=== PATIENT | male | born 1965 | race Caucasian/White ===

== ENCOUNTER 2017-10-27 16:57 | Emergency (ER) | payer OTHER ==
[2017-10-27] MEDS ORDERED: TORAdol 30 mg Injection IM ONE (17:53)
--- NOTE | 2017-10-27 17:57 | ERPHSYRPT ---
- History of Present Illness Time Seen by Provider: 10/27/17 17:50 Source: patient Exam Limitations: no limitations Patient Subjective Stated Complaint: pt reports pain to right [place] beginning last night-states that he has not injuryed it-denies swelling or warmth Triage Nursing Assessment: pt ambulatory to ed room-no obvious injury-no bruising or abrasions noted-no swelling noted Physician History: 52 y/o male comes to the ER with right leg pain that started yesterday. Pt localizes the pain on the front of the leg. Pt describes the pain as sharp, constant, 8/10, worse with movement and not relieved by oxycodone. Pt denies any injury to the leg and no swelling or warmth. Method of Injury: unknown Occurred: yesterday Quality: constant Severity of Pain-Max: severe Severity of Pain-Current: severe Modifying Factors: Improves With: nothing Associated Symptoms: none Allergies/Adverse Reactions: No Known Drug Allergies Allergy (Unverified 10/27/17 17:36) Home Medications: Benazepril HCl 10 mg [Lotensin 10 MG] 10 mg PO DAILY 10/27/17 [History] Hydrocodone Bit/Acetaminophen [[place] 7.5-325 Tablet] 1 each PO UD 10/27/17 [ History] Hx Tetanus, Diphtheria Vaccination/Date Given: Yes (2016) Hx Influenza Vaccination/Date Given: Yes (2016) Hx Pneumococcal Vaccination/Date Given: No Immunizations Up to Date: Yes - Review of Systems Constitutional: No Fever, No Chills Eyes: No Symptoms Ears, Nose, & Throat: No Symptoms Respiratory: No Cough, No Dyspnea Cardiac: No Chest Pain, No Edema, No Syncope Abdominal/Gastrointestinal: No Abdominal Pain, No Nausea, No Vomiting, No Diarrhea Genitourinary Symptoms: No Dysuria Musculoskeletal: Myalgias, No Back Pain, No Neck Pain Skin: No Rash Neurological: No Dizziness, No Focal Weakness, No Sensory Changes Psychological: No Symptoms Endocrine: No Symptoms All Other Systems: Reviewed and Negative - Past Medical History Pertinent Past Medical History: Yes Cardiac History: Hypertension - Past Surgical History Past Surgical History: Yes Musculoskeletal: Orthopedic Surgery - Social History Smoking Status: Never smoker Exposure to second hand smoke: No Drug Use: none Patient Lives Alone: No - Nursing Vital Signs Nursing Vital Signs: Initial Vital Signs Temperature 97.3 F 10/27/17 17:32 Pulse Rate 100 H 10/27/17 17:32 Respiratory Rate 20 10/27/17 17:32 Blood Pressure 144/82 10/27/17 17:32 O2 Sat by Pulse Oximetry 97 10/27/17 17:32 Pain Scale Pain Intensity 6 - Physical Exam General Appearance: alert Eyes, Ears, Nose, Throat Exam: moist mucous membranes Neck Exam: non-tender, supple Cardiovascular/Respiratory Exam: chest non-tender, normal breath sounds, regular rate/rhythm, no respiratory distress Gastrointestinal/Abdominal Exam: non-tender, guarding Back Exam: normal inspection, No vertebral tenderness Legs Exam: right leg: pain Knees Exam: bilateral knee: non-tender, normal inspection, normal range of motion Ankle Exam: bilateral ankle: non-tender, normal inspection Neuro/Tendon Exam: normal sensation, normal motor functions Mental Status Exam: alert, oriented x 3, cooperative Skin Exam: normal color, warm, dry SpO2: 97 Oxygen Delivery: Room Air - Course Nursing assessment & vital signs reviewed: Yes Ordered Tests: Active Orders 24 hr Category Date Time Status LOWER LEG Stat Exams 10/27/17 18:45 Taken Medication Summary Discontinued Medications Generic Name Dose Route Start Last Admin Trade Name Freq PRN Reason Stop Dose Admin Ketorolac Tromethamine 60 mg 10/27/17 17:53 10/27/17 18:03 Toradol 30 Mg Injection IM 10/27/17 17:54 60 mg STAT ONE Administration Ketorolac Tromethamine Confirm 10/27/17 18:00 Toradol 30 Mg Injection Administered 10/27/17 18:01 Dose 60 mg .ROUTE .STK-MED ONE - Progress Progress: improved Progress Note: 10/27/17 18:54 The patient feels better after receiving toradol. The x ray of tibia and fibula are within normal limits. The patient will be d/c home on toradol for musculoskeletal pain. - Departure Time of Disposition: 18:55 Departure Disposition: Home Clinical Impression: Leg pain Qualifiers: Laterality: right Qualified Code(s): M79.604 - Pain in right leg Condition: Stable Critical Care Time: No Instructions: Muscle and Bone Pain (DC) Additional Instructions: Follow up with your primary care doctor if yous should continue to have pain. Prescriptions: Ketorolac Tromethamine [Toradol] 10 mg PO QID PRN #12 tablet PRN Reason: Pain
[2017-10-27] MEDS ORDERED: TORAdol 30 mg Injection ONE (18:00)
[2017-10-27 19:20] VITALS: BP 137/87; PULSE 75; O2SAT 98
--- NOTE | 2017-10-28 08:39 | XRAY ---
Indication: Pain. No known injury. Comparison: None 2 views of the right lower leg obtained. No bony, articular, or soft tissue abnormalities.
== END 2017-10-27 19:21 | disposition home or self-care (01) ==
LOC: ED 16:57
DX: M79.661 Pain in right lower leg (principal)
CPT/HCPCS: 73590; 96372; 99284; J1885

== ENCOUNTER 2019-04-26 22:40 | Emergency (ER) | payer OTHER | END 2019-04-27 01:57 | disposition home or self-care (01) | LOC: ED 22:40 ==

== ENCOUNTER 2021-05-12 11:10 | Emergency (ER) | payer OTHER ==
[2021-05-12] MEDS ORDERED: TORAdol 30 mg Injection IV ONE (12:03)
[2021-05-12] MEDS ORDERED: Reglan 10 MG/2 ML IV ONE (12:03)
[2021-05-12] MEDS ORDERED: BENADRYL 50 MG/ML IV ONE (12:03)
[2021-05-12] MEDS ORDERED: TYLENOL 325 MG PO ONE (12:03)
[2021-05-12] MEDS ORDERED: Sodium Chloride 0.9% 1000 ML 1,000 ML IV STA (12:03)
--- NOTE | 2021-05-12 12:29 | ERPHSYRPT ---
- History of Present Illness Time Seen by Provider: 05/12/21 11:36 Source: patient Exam Limitations: no limitations Patient Subjective Stated Complaint: KAUFFMAN, back pain, fever and cough x 2 days Triage Nursing Assessment: pt to ED c/o KAUFFMAN 5/10, back pain, fever and cough x 2 days. pt has been taking OTC meds which have helped relieve KAUFFMAN. pt denies COVID exposure. reports fever at home however was not checked, "I can just tell by the way I feel." afebrile on arrival. no CP or SOB reported. Physician History: 56 years old male with history of hypertension, unvaccinated against COVID-19 presented in the ER with 2 days history of flulike symptoms with nasal congestion, cough, chest soreness, body aches and headache. Using [id number] medication with no significant relief. Has nausea but no vomiting. Patient feels weak fatigued and tired with no energy. Subjective feeling of fever and chills. Denies any known sick contact. Timing/Duration: day(s) (2), constant, gradual onset, worse Cough Quality/Degree: mild, dry cough Possible Cause: no prior episodes Modifying Factors: Improves With: nothing Associated Symptoms: fever, chills, chest pain/soreness, cough, dizziness, headache, muscle aches, nasal congestion, nasal drainage, sinus infection, sore throat, No shortness of breath Allergies/Adverse Reactions: No Known Drug Allergies Allergy (Verified 04/26/19 23:33) Home Medications: Benazepril HCl 10 mg [Lotensin 10 MG] 10 mg PO DAILY 10/27/17 [History] Hx Tetanus, Diphtheria Vaccination/Date Given: Yes (2016) Hx Influenza Vaccination/Date Given: Yes (2016) Hx Pneumococcal Vaccination/Date Given: No Immunizations Up to Date: Yes Travel Risk - International Travel Have you traveled outside of the country in past 3 weeks: No - Coronavirus Screening Are you exhibiting any of the following symptoms?: Yes Symptoms: Cough: New Onset, Headaches/Body Aches/Fatigue Close contact with a COVID-19 positive Pt in past 14-21 Days: No - Vaccine Status Have you recieved a Covid-19 vaccination: No - Review of Systems Constitutional: Fever, Chills, Fatigue, Weakness Eyes: No Symptoms Ears, Nose, & Throat: Nose Congestion, Sinus Drainage, Throat Swelling Respiratory: Cough Cardiac: No Symptoms Abdominal/Gastrointestinal: Nausea, Appetite Changes, No Abdominal Pain, No Vomiting Genitourinary Symptoms: No Symptoms Musculoskeletal: Back Pain, Myalgias Skin: No Symptoms Neurological: Headache Psychological: No Symptoms Endocrine: No Symptoms Hematologic/Lymphatic: No Symptoms Immunological/Allergic: No Symptoms - Past Medical History Pertinent Past Medical History: Yes Neurological History: No Pertinent History ENT History: No Pertinent History Cardiac History: Hypertension Respiratory History: No Pertinent History Endocrine Medical History: No Pertinent History Musculoskeletal History: No Pertinent History GI Medical History: No Pertinent History History: No Pertinent History Psycho-Social History: No Pertinent History Male Reproductive Disorders: No Pertinent History - Past Surgical History Past Surgical History: Yes Neuro Surgical History: No Pertinent History Cardiac: No Pertinent History Respiratory: No Pertinent History Gastrointestinal: No Pertinent History Genitourinary: No Pertinent History Musculoskeletal: Orthopedic Surgery Male Surgical History: No Pertinent History Other Surgical History: left hand middle finger - Social History Smoking Status: Never smoker Exposure to second hand smoke: No Drug Use: none Patient Lives Alone: No - Nursing Vital Signs Nursing Vital Signs: Initial Vital Signs Temperature 97.9 F 05/12/21 11:38 Pulse Rate 105 H 05/12/21 11:38 Respiratory Rate 18 05/12/21 11:38 Blood Pressure 145/101 05/12/21 11:38 O2 Sat by Pulse Oximetry 100 05/12/21 11:38 Pain Scale Pain Intensity 5 - Physical Exam General Appearance: no apparent distress, alert Eye Exam: PERRL/EOMI, eyes nml inspection Ears, Nose, Throat Exam: TMs normal, pharyngeal erythema Neck Exam: normal inspection, non-tender, supple, full range of motion, No meningismus Respiratory Exam: diminished breath sounds, wheezing, No accessory muscle use Cardiovascular Exam: regular rate/rhythm, normal heart sounds Gastrointestinal/Abdomen Exam: soft, normal bowel sounds Back Exam: normal inspection, normal range of motion Extremity Exam: normal inspection, normal range of motion, pelvis stable Neurologic Exam: alert, oriented x 3, cooperative, recreation manager II-XII nml as tested, normal mood/affect, nml cerebellar function, nml station & gait, sensation nml, No motor deficits, No sensory deficit Skin Exam: normal color SpO2 Interpretation: normal SpO2: 100 O2 Delivery: Room Air Ordered Tests: Active Orders 24 hr Category Date Time Status IV Insertion STAT Care 05/12/21 12:03 Active CHEST 1 VIEW (PORTABLE) Stat Exams 05/12/21 12:04 Taken CBC W DIFF Stat Lab 05/12/21 12:28 Completed CMP Stat Lab 05/12/21 12:28 Completed Lactic Acid Stat Lab 05/12/21 12:30 Completed TROPONIN Q3H Lab 05/12/21 12:28 Completed TROPONIN Q3H Lab 05/12/21 15:15 Ordered TROPONIN Q3H Lab 05/12/21 18:15 Ordered TROPONIN Q3H Lab 05/12/21 21:15 Ordered TROPONIN Q3H Lab 05/13/21 00:15 Ordered UA W/RFX UR CULTURE Stat Lab 05/12/21 12:04 Ordered Medication Summary Discontinued Medications Generic Name Dose Route Start Last Admin Trade Name Freq PRN Reason Stop Dose Admin Acetaminophen 975 mg 05/12/21 12:03 05/12/21 12:57 Tylenol 325 Mg PO 05/12/21 12:04 975 mg STAT ONE Administration Acetaminophen Confirm 05/12/21 12:54 Tylenol 325 Mg Administered 05/12/21 12:55 Dose 975 mg .ROUTE .STK-MED ONE Diphenhydramine HCl 25 mg 05/12/21 12:03 05/12/21 12:56 Benadryl 50 Mg/Ml IV 05/12/21 12:04 25 mg STAT ONE Administration Diphenhydramine HCl Confirm 05/12/21 12:54 Benadryl 50 Mg/Ml Administered 05/12/21 12:55 Dose 50 mg .ROUTE .STK-MED ONE Sodium Chloride 1,000 mls @ 999 mls/hr 05/12/21 12:03 05/12/21 12:56 Sodium Chloride 0.9% 1000 Ml IV 05/12/21 13:03 999 mls/hr .Q1H1M STA Administration Sodium Chloride Confirm 05/12/21 12:54 Sodium Chloride 0.9% 1000 Ml Administered 05/12/21 12:55 Dose 1,000 mls @ ud .ROUTE .STK-MED ONE Ketorolac Tromethamine 30 mg 05/12/21 12:03 05/12/21 12:56 Toradol 30 Mg Injection IV 05/12/21 12:04 30 mg STAT ONE Administration Ketorolac Tromethamine Confirm 05/12/21 12:54 Toradol 30 Mg Injection Administered 05/12/21 12:55 Dose 30 mg .ROUTE .STK-[facility] ONE Metoclopramide HCl 10 mg 05/12/21 12:03 05/12/21 12:55 Reglan 10 Mg/2 Ml IV 05/12/21 12:04 10 mg STAT ONE Administration Metoclopramide HCl Confirm 05/12/21 12:54 Reglan 10 Mg/2 Ml Administered 05/12/21 12:55 Dose 10 mg .ROUTE .[facility] ONE Lab/Rad Data: Laboratory Result Diagrams 05/12/21 12:28 05/12/21 12:28 Laboratory Results 05/12/21 05/12/21 05/12/21 Range/Units 12:30 12:28 12:28 WBC (4.0-10.5) K/mm3 RBC (4.1-5.6) M/mm3 Hgb (12.5-18.0) gm/dl Hct (42-50) % MCV (78-100) fl MCH (26-32) pg MCHC (32-36) g/dl RDW (11.5-14.0) % Plt Count (150-450) K/mm3 MPV (7.5-11.0) fl Gran % (36.0-66.0) % Eos # (Auto) (0-0.5) Absolute Lymphs (auto) (1.0-4.6) Absolute Monos (auto) (0.0-1.3) Lymphocytes % (24.0-44.0) % Monocytes % (0.0-12.0) % Eosinophils % (0.00-5.0) % Basophils % (0.0-0.4) % Absolute Granulocytes (1.4-6.9) Basophils # (0-0.4) Sodium 134 L (137-145) mmol/L Potassium 4.0 (3.5-5.1) mmol/L Chloride 102 (98-107) mmol/L Carbon Dioxide 23 (22-30) mmol/L Anion Gap 13.2 (5-15) MEQ/L BUN 12 (9-20) mg/dL Creatinine 0.99 (0.66-1.25) mg/dL Estimated GFR > 60.0 ML/MIN Glucose 97 (74-106) mg/dL Lactic Acid 0.6 (0.4-2.0) Calcium 8.9 (8.4-10.2) mg/dL Total Bilirubin 0.30 (0.2-1.3) mg/dL AST 50 (17-59) U/L ALT 57 H (0-50) U/L Alkaline Phosphatase 82 (38-126) U/L Troponin I < 0.012 (0.000-0.034) ng/mL Serum Total Protein 7.5 (6.3-8.2) g/dL Albumin 4.5 (3.5-5.0) g/dL 05/12/21 Range/Units 12:28 WBC 4.9 (4.0-10.5) K/mm3 RBC 4.73 (4.1-5.6) M/mm3 Hgb 15.0 (12.5-18.0) gm/dl Hct 43.5 (42-50) % MCV 92.0 (78-100) fl MCH 31.7 (26-32) pg MCHC 34.5 (32-36) g/dl RDW 12.1 (11.5-14.0) % Plt Count 165 (150-450) K/mm3 MPV 9.6 (7.5-11.0) fl Gran % 83.7 H (36.0-66.0) % Eos # (Auto) 0.02 (0-0.5) Absolute Lymphs (auto) 0.43 L (1.0-4.6) Absolute Monos (auto) 0.33 (0.0-1.3) Lymphocytes % 8.9 L (24.0-44.0) % Monocytes % 6.8 (0.0-12.0) % Eosinophils % 0.4 (0.00-5.0) % Basophils % 0.2 (0.0-0.4) % Absolute Granulocytes 4.06 (1.4-6.9) Basophils # 0.01 (0-0.4) Sodium (137-145) mmol/L Potassium (3.5-5.1) mmol/L Chloride (98-107) mmol/L Carbon Dioxide (22-30) mmol/L Anion Gap (5-15) MEQ/L BUN (9-20) mg/dL Creatinine (0.66-1.25) mg/dL Estimated GFR ML/MIN Glucose (74-106) mg/dL Lactic Acid (0.4-2.0) Calcium (8.4-10.2) mg/dL Total Bilirubin (0.2-1.3) mg/dL AST (17-59) U/L ALT (0-50) U/L Alkaline Phosphatase (38-126) U/L Troponin I (0.000-0.034) ng/mL Serum Total Protein (6.3-8.2) g/dL Albumin (3.5-5.0) g/dL - Progress Progress: improved Air Movement: good Progress Note: 05/12/21 14:13 56 years old is evaluated for flulike symptoms. Is given migraine cocktail, on reevaluation feeling much better. His headache is completely resolved. Lab work grossly unremarkable. Chest x-ray showed some questionable infiltrative process in the right lower lobe. I would start him on doxycycline and steroid along with inhaler as it could be Covid related with his symptoms suggestive of and especially he is not vaccinated. Patient is maintaining oxygen saturation around 98% on room air. Not in any distress. Will obtain COVID-19 testing outpatient. Discussed signs symptoms of worsening needing return to ER which he seems understanding. Stable for discharge. Antibiotics given: Yes Counseled pt/family regarding: lab results, diagnosis, need for follow-up, rad results - Departure Departure Disposition: Home Clinical Impression: Viral syndrome Acute bronchitis Qualifiers: Bronchitis organism: unspecified organism Qualified Code(s): J20.9 - Acute bronchitis, unspecified Condition: Stable Critical Care Time: No Referrals: DOCTOR,NO FAMILY [Primary Care Provider] - GILES CHRISTIAN [ACTIVE STAFF] - (Call tomorrow for reevaluation) Instructions: Headache, Adult (DC), Viral Syndrome (DC) Additional Instructions: Use Tylenol/albuterol inhaler as needed. Follow-up with primary care physician for reevaluation. Follow contact/droplet precautions for COVID-19 until your test results are back. Return to ER for worsening cough or if develop persistent fever with shortness of breath etc. Prescriptions: Dexamethasone [Decadron] 6 mg PO DAILY #5 tablet Albuterol 8 gm Mdi Hfa [Ventolin Hfa MDI] 8 gm IH Q4H #1 gm Doxycycline Hyclate 100 mg [Vibramycin 100 MG] 100 mg PO BID #14 tab
[2021-05-12 12:36] LABS: Absolute Neutrophil Ct (ANC) 4.06 (1.4-6.9); BASOPHIL % 0.2 % (0.0-0.4); Basophil (Absolute #) 0.01 (0-0.4); Eosinophil % 0.4 % (0.00-5.0); Eosinophil (Absolute #) 0.02 (0-0.5); Hematocrit 43.5 % (42-50); Lymphocyte (Absolute #) 0.43 (1.0-4.6); Lymphocytes % 8.9 % (24.0-44.0); Mean Corpuscular Hemoglobin 31.7 pg (26-32); Mean Corpuscular Hgb Concent. 34.5 g/dl (32-36); Mean Platelet Volume 9.6 fl (7.5-11.0); Monocyte (Absolute #) 0.33 (0.0-1.3); Monocytes % 6.8 % (0.0-12.0); Neutrophil % 83.7 % (36.0-66.0); Platelet Count 165 K/mm3 (150-450); Red Blood Count 4.73 M/mm3 (4.1-5.6); Red Cell Distribution Width 12.1 % (11.5-14.0); White Blood Count 4.9 K/mm3 (4.0-10.5)
[2021-05-12 12:51] LABS: ALBUMIN 4.5 g/dL (3.5-5.0); ALKALINE PHOSPHATASE 82 U/L (38-126); ANION GAP 13.2 MEQ/L (5-15); BLOOD UREA NITROGEN 12 mg/dL (9-20); CHLORIDE 102 mmol/L (98-107); Calcium 8.9 mg/dL (8.4-10.2); Carbon Dioxide 23 mmol/L (22-30); Creatinine 1 0.99 mg/dL (0.66-1.25); EST GLOMERULAR FILTRATION RATE > 60.0 ML/MIN; Glucose 97 mg/dL (74-106); SGOT/AST 50 U/L (17-59); SGPT/ALT 57 U/L (0-50); SODIUM 134 mmol/L (137-145); Total Protein 7.5 g/dL (6.3-8.2)
[2021-05-12] MEDS ORDERED: Sodium Chloride 0.9% 1000 ML 1,000 ML ONE (12:54)
[2021-05-12] MEDS ORDERED: TORAdol 30 mg Injection ONE (12:54)
[2021-05-12] MEDS ORDERED: BENADRYL 50 MG/ML ONE (12:54)
[2021-05-12] MEDS ORDERED: Reglan 10 MG/2 ML ONE (12:54)
[2021-05-12] MEDS ORDERED: TYLENOL 325 MG ONE (12:54)
[2021-05-12] MEDS ORDERED: Decadron 4 MG PO STA (14:17)
[2021-05-12] MEDS ORDERED: Vibramycin 100 MG PO ONE (14:17)
[2021-05-12] MEDS ORDERED: Vibramycin 100 MG ONE (14:25)
[2021-05-12] MEDS ORDERED: DECADRON 10MG INJ. ONE (15:08)
[2021-05-12 15:15] LABS: Appearance CLEAR (CLEAR); Bilirubin NEGATIVE (NEGATIVE); Blood NEGATIVE Ery/ul (0-5); Glucose NEGATIVE (NEGATIVE); Ketones NEGATIVE (NEGATIVE); Leukocyte Esterase NEGATIVE (NEGATIVE); Mucus SLIGHT /HPF (NEGATIVE); Nitrite NEGATIVE (NEGATIVE); Protein,Urine Dip NEGATIVE (Negative); Urobilinogen NEGATIVE mg/dL (0-1)
[2021-05-12 16:09] VITALS: BP 111/72; PULSE 78; O2SAT 98
--- NOTE | 2021-05-12 18:37 | XRAY ---
Indication: Cough. Suspect Covid 19. Comparison: October 18, 2020. Portable chest demonstrates new bibasilar discoid atelectasis/scarring. Remaining heart and lungs are unremarkable. Bony thorax intact again with mild degenerative changes.
== END 2021-05-12 16:00 | disposition home or self-care (01) ==
LOC: ED 11:10
DX: B34.9 Viral infection, unspecified (principal)
CPT/HCPCS: 36000; 36415; 71045; 80053; 81001; 83605; 84484; 85025; 93005; 96360; 96374; 96375; 99284; U0003; J1100; J1200; J1885; A9270-GY

== ENCOUNTER 2021-05-20 16:58 | Emergency (ER) | payer OTHER ==
--- NOTE | 2021-05-20 17:29 | ERPHSYRPT ---
- History of Present Illness Time Seen by Provider: 05/20/21 17:20 Source: patient Exam Limitations: no limitations Patient Subjective Stated Complaint: chest pain when coughing x 3 days. COVID positive Triage Nursing Assessment: pt to ED c/o CP with coughing, SOB, fever, KAUFFMAN, and near syncope when couging. rates 0/10 at rest but 10/10 when coughing. heart sounds clear and equal. lung sounds crackles inspration bilaterally. was Dx covid positive 05/12/21. Physician History: Patient is a 56-year-old male Covid positive presents to our ED for near syncopal episode after a cough. Episode occurred just prior to arrival. Patient currently feels at his baseline. Patient states he is only here because his family member made him come to our ED for evaluation. Patient only experiences chest discomfort when he coughs. Mild shortness of breath. Patient states he has been experiencing some loose stools. He has lost his taste and smell. Mild frontal headache. Some myalgias as well. Patient is experiencing some fatigue but this has been ongoing since his Covid diagnosis. Symptoms are mild to moderate in intensity. No specific worsening or improving factors. Patient voices no other complaints or concerns at this time. Timing/Duration: today Severity: mild Modifying Factors: Improves With: nothing Associated Symptoms: shortness of breath, cough, headaches Allergies/Adverse Reactions: No Known Drug Allergies Allergy (Verified 04/26/19 23:33) Home Medications: Benazepril HCl 10 mg [Lotensin 10 MG] 10 mg PO DAILY 10/27/17 [History] Hx Tetanus, Diphtheria Vaccination/Date Given: No Hx Influenza Vaccination/Date Given: No Hx Pneumococcal Vaccination/Date Given: No Immunizations Up to Date: No Travel Risk - International Travel Have you traveled outside of the country in past 3 weeks: No - Coronavirus Screening Are you exhibiting any of the following symptoms?: Yes Symptoms: Fever, Cough: New Onset, Shortness of Breath, Vomiting/Diarrhea, Loss of Taste or Smell, Headaches/Body Aches/Fatigue Close contact with a COVID-19 positive Pt in past 14-21 Days: Yes - Vaccine Status Have you recieved a Covid-19 vaccination: No - Review of Systems Constitutional: No Symptoms, No Fever, No Chills Eyes: No Symptoms Ears, Nose, & Throat: No Symptoms Respiratory: No Symptoms, No Cough, No Dyspnea Cardiac: No Symptoms, No Chest Pain, No Edema, No Syncope Abdominal/Gastrointestinal: No Symptoms, No Abdominal Pain, No Nausea, No Vomiting, No Diarrhea Genitourinary Symptoms: No Symptoms, No Dysuria Musculoskeletal: No Symptoms, No Back Pain, No Neck Pain Skin: No Symptoms, No Rash Neurological: No Symptoms, No Dizziness, No Focal Weakness, No Sensory Changes Psychological: No Symptoms Endocrine: No Symptoms Hematologic/Lymphatic: No Symptoms Immunological/Allergic: No Symptoms All Other Systems: Reviewed and Negative - Past Medical History Pertinent Past Medical History: Yes Neurological History: No Pertinent History ENT History: No Pertinent History Cardiac History: Hypertension Respiratory History: No Pertinent History Endocrine Medical History: No Pertinent History Musculoskeletal History: No Pertinent History GI Medical History: No Pertinent History History: No Pertinent History Psycho-Social History: No Pertinent History Male Reproductive Disorders: No Pertinent History - Past Surgical History Past Surgical History: Yes Neuro Surgical History: No Pertinent History Cardiac: No Pertinent History Respiratory: No Pertinent History Gastrointestinal: No Pertinent History Genitourinary: No Pertinent History Musculoskeletal: Orthopedic Surgery Male Surgical History: No Pertinent History Other Surgical History: left hand middle finger - Social History Smoking Status: Never smoker Exposure to second hand smoke: No Drug Use: none Patient Lives Alone: No - Nursing Vital Signs Nursing Vital Signs: Initial Vital Signs Temperature 98.8 F 05/20/21 17:06 Pulse Rate 110 H 05/20/21 17:06 Respiratory Rate 17 05/20/21 17:06 O2 Sat by Pulse Oximetry 99 05/20/21 17:06 Pain Scale Pain Intensity 0 - Physical Exam General Appearance: no apparent distress, alert Eye Exam: PERRL/EOMI, eyes nml inspection Ears, Nose, Throat Exam: normal ENT inspection, TMs normal, pharynx normal, gina st mucous membranes Neck Exam: normal inspection, non-tender, supple, full range of motion Respiratory Exam: normal breath sounds, airway intact, other (Mildly coarse breath sound), No chest tenderness, No respiratory distress Cardiovascular Exam: regular rate/rhythm, normal heart sounds, normal peripheral pulses Gastrointestinal/Abdomen Exam: soft, normal bowel sounds, No tenderness, No mass Back Exam: normal inspection, normal range of motion, No CVA tenderness, No moy tebral tenderness Extremity Exam: normal inspection, normal range of motion, pelvis stable Neurologic Exam: alert, oriented x 3, cooperative, normal mood/affect, sensation nml, No motor deficits Skin Exam: normal color, warm, dry, No rash Lymphatic Exam: No adenopathy SpO2 Interpretation: normal SpO2: 99 O2 Delivery: Room Air - Course Nursing assessment & vital signs reviewed: Yes EKG Interpreted by Me: RATE (55), Sinus Tach, NORMAL AXIS, NORMAL INTERVALS - Radiology Exams Chest X-ray Interpretation: Interpreted by me (Right lower lobe peripheral opacity consistent with Covid pneumonia.) Ordered Tests: Active Orders 24 hr Category Date Time Status Plumbing Foreman STAT Care 05/20/21 17:11 Active EKG-ER Only STAT Care 05/20/21 17:10 Active IV Insertion STAT Care 05/20/21 17:10 Active Pulse Oximetry (ED) STAT Care 05/20/21 17:10 Active CHEST 1 VIEW (PORTABLE) Stat Exams 05/20/21 17:11 Taken CBC W DIFF Stat Lab 05/20/21 17:30 Completed CMP Stat Lab 05/20/21 17:30 Completed TROPONIN Q3H Lab 05/20/21 17:30 Completed TROPONIN Q3H Lab 05/20/21 20:15 Ordered TROPONIN Q3H Lab 05/20/21 23:15 Ordered TROPONIN Q3H Lab 05/21/21 02:15 Ordered TROPONIN Q3H Lab 05/21/21 05:15 Ordered Medication Summary Discontinued Medications Generic Name Dose Route Start Last Admin Trade Name Freq PRN Reason Stop Dose Admin Dexamethasone Sodium Phosphate 8 mg 05/20/21 19:02 05/20/21 19:22 Decadron 10mg Inj. IV 05/20/21 19:03 8 mg STAT ONE Administration Dexamethasone Sodium Phosphate Confirm 05/20/21 19:15 Decadron 10mg Inj. Administered 05/20/21 19:16 Dose 10 mg .ROUTE .STK-MED ONE Sodium Chloride 1,000 mls @ 999 mls/hr 05/20/21 18:59 05/20/21 19:22 Sodium Chloride 0.9% 1000 Ml IV 05/20/21 19:59 999 mls/hr .Q1H1M STA Administration Sodium Chloride Confirm 05/20/21 19:15 Sodium Chloride 0.9% 1000 Ml Administered 05/20/21 19:16 Dose 1,000 mls @ ud .ROUTE .STK-MED ONE Lab/Rad Data: Laboratory Result Diagrams 05/20/21 17:30 05/20/21 17:30 Laboratory Results 05/20/21 05/20/21 05/20/21 Range/Units 17:30 17:30 17:30 WBC 5.8 (4.0-10.5) K/mm3 RBC 5.08 (4.1-5.6) M/mm3 Hgb 15.7 (12.5-18.0) gm/dl Hct 46.0 (42-50) % MCV 90.6 (78-100) fl MCH 30.9 (26-32) pg MCHC 34.1 (32-36) g/dl RDW 12.4 (11.5-14.0) % Plt Count 171 (150-450) K/mm3 MPV 9.6 (7.5-11.0) fl Gran % 68.6 H (36.0-66.0) % Eos # (Auto) 0 (0-0.5) Absolute Lymphs (auto) 1.35 (1.0-4.6) Absolute Monos (auto) 0.45 (0.0-1.3) Lymphocytes % 23.4 L (24.0-44.0) % Monocytes % 7.8 (0.0-12.0) % Eosinophils % 0.0 (0.00-5.0) % Basophils % 0.2 (0.0-0.4) % Absolute Granulocytes 3.95 (1.4-6.9) Basophils # 0.01 (0-0.4) Sodium 131 L (137-145) mmol/L Potassium 3.9 (3.5-5.1) mmol/L Chloride 95 L (98-107) mmol/L Carbon Dioxide 24 (22-30) mmol/L Anion Gap 16.4 H (5-15) MEQ/L BUN 16 (9-20) mg/dL Creatinine 1.05 (0.66-1.25) mg/dL Estimated GFR > 60.0 ML/MIN Glucose 77 (74-106) mg/dL Calcium 8.7 (8.4-10.2) mg/dL Total Bilirubin 0.40 (0.2-1.3) mg/dL AST 77 H (17-59) U/L ALT 139 H (0-50) U/L Alkaline Phosphatase 106 (38-126) U/L Troponin I < 0.012 (0.000-0.034) ng/mL Serum Total Protein 7.2 (6.3-8.2) g/dL Albumin 4.1 (3.5-5.0) g/dL - Progress Progress: improved Progress Note: Chest x-ray shows a peripheral opacity consistent with Covid pneumonia. Patient received a dose of Decadron and IV fluids. The IV fluids will adjust the mild hyponatremia. We will ambulate patient throughout our ED and assess oxygen saturation. We will discussed the case with our Covid physician to see whether or not patient merits admission. 05/20/21 19:[address] Longoria. Patient should be discharged home according to Dr. Tsang. Dr. Tsang advised for us to obtain patient's name and to make arrangements for patient to follow-up as an outpatient for infusion of antibodies. Patient ambulated in our ED and maintained an oxygen saturation 97%. Patient is requesting discharge at this time. 05/20/21 20:00 Counseled pt/family regarding: lab results, diagnosis, need for follow-up, rad results - Departure Departure Disposition: Home Clinical Impression: Pneumonia due to COVID-19 virus, Hyponatremia Condition: Stable Critical Care Time: No Referrals: DOCTOR,NO FAMILY [Primary Care Provider] - LIANNA SALGADO [ACTIVE STAFF] - Additional Instructions: Discharge/Care Plan SHERICE DELEON JR was seen on 05/20/21 in the Emergency Room. The patient was counseled regarding Diagnosis,Lab results, Imaging studies, need for follow up and when to return to the Emergency Room. Prescriptions given: Discharge Note I have spoken with the patient and/or caregivers. I have explained the patient's condition, diagnosis and treatment plan based on the information available to me at this time. I have answered the patient's and/or caregiver's questions and addressed any concerns. The patient and/or caregivers have as good understanding of the patient's diagnosis, condition and treatment plan as can be expected at this point. The vital signs have been stable. The patient's condition is stable and appropriate for discharge from the emergency department. The patient will pursue further outpatient evaluation with the primary care physician or other designated or consulting physician as outlined in the discharge instructions. The patient and/or caregivers are agreeable to this plan of care and follow-up instructions have been explained in detail. The patient and/or caregivers have received these instruction. The patient/and or caregivers are aware that any significant change in condition or worsening of symptoms should prompt an immediate return to this or the closest emergency department or call 911.
[2021-05-20 17:38] LABS: Absolute Neutrophil Ct (ANC) 3.95 (1.4-6.9); BASOPHIL % 0.2 % (0.0-0.4); Basophil (Absolute #) 0.01 (0-0.4); Eosinophil (Absolute #) 0 (0-0.5); Hemoglobin 15.7 gm/dl (12.5-18.0); Lymphocyte (Absolute #) 1.35 (1.0-4.6); Lymphocytes % 23.4 % (24.0-44.0); Mean Cell Volume 90.6 fl (78-100); Mean Corpuscular Hemoglobin 30.9 pg (26-32); Mean Corpuscular Hgb Concent. 34.1 g/dl (32-36); Mean Platelet Volume 9.6 fl (7.5-11.0); Monocyte (Absolute #) 0.45 (0.0-1.3); Monocytes % 7.8 % (0.0-12.0); Neutrophil % 68.6 % (36.0-66.0); Platelet Count 171 K/mm3 (150-450); Red Blood Count 5.08 M/mm3 (4.1-5.6); Red Cell Distribution Width 12.4 % (11.5-14.0); White Blood Count 5.8 K/mm3 (4.0-10.5)
[2021-05-20 17:51] LABS: ALBUMIN 4.1 g/dL (3.5-5.0); ALKALINE PHOSPHATASE 106 U/L (38-126); ANION GAP 16.4 MEQ/L (5-15); BLOOD UREA NITROGEN 16 mg/dL (9-20); CHLORIDE 95 mmol/L (98-107); Calcium 8.7 mg/dL (8.4-10.2); Carbon Dioxide 24 mmol/L (22-30); Creatinine 1 1.05 mg/dL (0.66-1.25); EST GLOMERULAR FILTRATION RATE > 60.0 ML/MIN; Glucose 77 mg/dL (74-106); Potassium 3.9 mmol/L (3.5-5.1); SGOT/AST 77 U/L (17-59); SGPT/ALT 139 U/L (0-50); SODIUM 131 mmol/L (137-145); Total Protein 7.2 g/dL (6.3-8.2)
[2021-05-20] MEDS ORDERED: Sodium Chloride 0.9% 1000 ML 1,000 ML IV STA (18:59)
[2021-05-20] MEDS ORDERED: DECADRON 10MG INJ. IV ONE (19:02)
[2021-05-20] MEDS ORDERED: Sodium Chloride 0.9% 1000 ML 1,000 ML ONE (19:15)
[2021-05-20] MEDS ORDERED: DECADRON 10MG INJ. ONE (19:15)
[2021-05-20 20:03] VITALS: O2SAT 99
[2021-05-20 20:19] VITALS: BP 123/82; PULSE 88
--- NOTE | 2021-05-21 09:01 | XRAY ---
Indication: Cough. Suspect Covid 19. Comparison: May 12, 2021. Portable chest again demonstrates bibasilar linear opacities favoring discoid atelectasis/scarring worsened on the right. Remaining heart and lungs unremarkable.
== END 2021-05-20 21:11 | disposition home or self-care (01) ==
LOC: ED 16:58
DX: J12.82 Pneumonia due to coronavirus disease 2019 (principal); E87.1 Hypo-osmolality and hyponatremia; R07.89 Other chest pain; R05 Cough; R50.9 Fever, unspecified; R51.9 Headache, unspecified; R06.02 Shortness of breath
CPT/HCPCS: 36000; 36415; 71045; 80053; 84484; 85025; 93005; 93041; 94760; 96374; 99284; J1100

== ENCOUNTER 2024-04-25 19:37 | Emergency (ER) | payer OTHER ==
[2024-04-25] MEDS ORDERED: Fluor-I-Strip/Ful-Flo OP ONE ×2 (19:50→20:21)
[2024-04-25] MEDS ORDERED: Eye-Stream Solution ONE (19:50)
[2024-04-25] MEDS ORDERED: TETRACAINE 0.5% STERI-UNIT SOL OP ONE (19:50)
[2024-04-25] MEDS: TETRACAINE 0.5% STERI-UNIT SOL OP STA (19:59)
[2024-04-25 20:00] VITALS: TEMP 98.3; O2SAT 98
--- NOTE | 2024-04-25 20:11 | ERPHSYRPT ---
- History of Present Illness Time Seen by Provider: 04/25/24 19:52 Source: patient Exam Limitations: no limitations Patient Subjective Stated Complaint: L eye injury, pt states he thinks he got metal in his eye Triage Nursing Assessment: pt ambulatory to bed by self holding left eye, pt unable to hold L eye open without squinting, pt states he thinks he had metal in his eye, visual acuity was 20/70 in L, R, and bilateral eyes, pt normally wears glasses, rating pain 10/10 Physician History: Pt states about 35 minutes ago at home he thinks something got in his left eye, has burning & pain in his left eye. Allergies/Adverse Reactions: No Known Drug Allergies Allergy (Verified 04/25/24 19:49) Home Medications: Benazepril HCl [Lotensin 10 MG] 10 mg PO DAILY 10/27/17 [History] Amlodipine Besylate 5 mg [Norvasc 5 mg] 5 mg PO DAILY 04/25/24 [History] Rosuvastatin Calcium 1 tab PO DAILY 04/25/24 [History] Hx Tetanus, Diphtheria Vaccination/Date Given: No (unk) Hx Influenza Vaccination/Date Given: No Hx Pneumococcal Vaccination/Date Given: No Immunizations Up to Date: No Travel Risk - International Travel Have you traveled outside of the country in past 3 weeks: No - Emerging Infectious Disease Are you exhibiting symptoms associated with any current EIDs: No - Review of Systems Eyes: Foreign Body Sensation (left) - Past Medical History Pertinent Past Medical History: Yes Neurological History: No Pertinent History ENT History: No Pertinent History Cardiac History: High Cholesterol, Hypertension Respiratory History: No Pertinent History Endocrine Medical History: No Pertinent History Musculoskeletal History: No Pertinent History GI Medical History: No Pertinent History History: No Pertinent History Psycho-Social History: No Pertinent History Male Reproductive Disorders: No Pertinent History - Past Surgical History Past Surgical History: Yes Neuro Surgical History: No Pertinent History Cardiac: No Pertinent History Respiratory: No Pertinent History Gastrointestinal: No Pertinent History Genitourinary: No Pertinent History Musculoskeletal: Orthopedic Surgery Male Surgical History: No Pertinent History Other Surgical History: left hand middle finger - Social History Smoking Status: Never smoker Exposure to second hand smoke: No Drug Use: none Patient Lives Alone: No - Social Determinants of Health Will the patient participate in the screening: Yes Do you worry about a steady place to live?: No Do you have any problems with any of the following?: No known problems In the past 12 months,have you had to go without utilities?: No Transportation Issues: No Has anyone in your support network made you feel unsafe?: No Have you or anyone in your house had to go without enough: No - Nursing Vital Signs Nursing Vital Signs: Initial Vital Signs Temperature 98.3 F 04/25/24 19:50 Pulse Rate 106 H 04/25/24 19:50 Respiratory Rate 18 04/25/24 19:50 Blood Pressure 146/114 04/25/24 19:50 O2 Sat by Pulse Oximetry 98 04/25/24 19:50 Pain Scale Pain Intensity 10 - Physical Exam General Appearance: alert Eye Exam: left eye: other (conjunctival injection - mild; fluorescin staining of left eye reveals a corneal abrasion from 11 - 1 o'clock), bilateral eye: PERRL, EOMI Nasal Exam: normal inspection Throat Exam: pharynx normal, moist mucus membranes Neck Exam: normal inspection Cardiovascular/Respiratory Exam: normal breath sounds, heart sounds normal Skin Exam: warm, dry SpO2 Interpretation: normal SpO2: 98 O2 Delivery: Room Air - Course Nursing assessment & vital signs reviewed: Yes Ordered Tests: Active Orders 24 hr Category Date Time Status Visual Acuity STAT Care 04/25/24 20:05 Active Medication Summary Discontinued Medications Generic Name Dose Route Start Last Admin Trade Name Freq PRN Reason Stop Dose Admin Ciprofloxacin 2.5 ml 04/25/24 20:05 Ciprofloxacin Hcl 2.5 Ml Bottle OP 04/25/24 20:06 STAT ONE Eye Irrigation Solution Confirm 04/25/24 19:50 Sodium/Potassium/Giuseppe/Magnesium 30 Ml Eye Wash Administered 04/25/24 19:51 Dose 30 ml .ROUTE .STK-MED ONE Fluorescein Sodium Confirm 04/25/24 19:50 Fluorescein Sodium 1 Mg/Strip Strip Administered 04/25/24 19:51 Dose 1 mg OP .STK-MED ONE Fluorescein Sodium 1 mg 04/25/24 20:05 Fluorescein Sodium 1 Mg/Strip Strip OP 04/25/24 20:06 STAT ONE Tetracaine HCl Confirm 04/25/24 19:50 Tetracaine Hcl/Pf 4 Ml Bottle Administered 04/25/24 19:51 Dose 4 ml OP .STK-MED ONE Tetracaine HCl 4 ml 04/25/24 19:57 04/25/24 19:59 Tetracaine Hcl/Pf 4 Ml Bottle OP 04/25/24 19:58 4 ml STAT STA Administration - Progress Progress: improved Counseled pt/family regarding: diagnosis, need for follow-up - Departure Departure Disposition: Home Clinical Impression: Corneal abrasion of left eye, Conjunctivitis of left eye Condition: Stable Critical Care Time: No Referrals: PHIL CARLOS PETROPHYSICAL ENGINEER [Primary Care Provider] - Follow up/PCP as directed Instructions: Corneal Abrasion ED, Conjunctivitis ([facility]) ED Additional Instructions: Follow up with eye doctor tomorrow. Prescriptions: Ciprofloxacin HCl [Ciloxan] 3.5 gm OP UD 7 Days
[2024-04-25] MEDS ORDERED: CIPROFLOXACIN HCL OP ONE (20:21)
[2024-04-25] MEDS: Fluor-I-Strip/Ful-Flo OP ONE (20:21)
[2024-04-25] MEDS: Eye-Stream Solution OP ONE (20:23)
[2024-04-25] MEDS: CIPROFLOXACIN HCL OP ONE (20:23)
[2024-04-25 20:30] VITALS: BP 129/89; PULSE 78; RESP 16
== END 2024-04-25 20:32 | disposition home or self-care (01) ==
LOC: ED 19:37
DX: S05.02XA Injury of conjunctiva and corneal abrasion without foreign body, left eye, initial encounter (principal); H10.32 Unspecified acute conjunctivitis, left eye; E78.5 Hyperlipidemia, unspecified; I10 Essential (primary) hypertension; Z79.899 Other long term (current) drug therapy
CPT/HCPCS: 99281; A9270-GY